=== PATIENT | female | born 1985 | race African-American/Black ===

== ENCOUNTER 2019-06-20 08:57 | Emergency (ER) | payer MEDICAID ==
[~2019-06-20] VITALS: Ht 154.9 cm; Wt 79.5 kg
[~2019-06-20 08:57] MED LIST: AMLO10TA80 PO; ASPI-1497 PO; GABA-529 PO; HYDR25TA PO
[2019-06-20 09:20] VITALS: BP 208/127
== END 2019-06-20 11:34 | disposition home or self-care (01) ==
LOC: ER 08:57
DX: J06.9 Acute upper respiratory infection, unspecified (principal); I10 Essential (primary) hypertension
CPT/HCPCS: 99281